=== PATIENT | female | born 1955 | race Caucasian/White ===

== ENCOUNTER 2016-12-20 17:18 | Inpatient (IN) | payer BC ==
[~2016-12-20 17:18] MED LIST: ADVI200C9 PO; LEVO.075 PO; LORT7.5T3 PO; OMEP20CA5 PO; PROT40TA PO
[2016-12-20 17:23] VITALS: BP 219/102; PULSE 118; RESP 18; TEMP 98.6; O2SAT 97
--- NOTE | 2016-12-20 17:26 | PD ---
HPI Chief Complaint: Neuro Symptoms/ Deficits Time Seen by Provider: 17:22 Travel History International Travel<30 days: No Contact w/Intl Traveler<30days: No Traveled to known affect area: No History of Present Illness HPI APPARENTLY PER PATIENT BECAME UNRESPONSIVE WHILE ON TOILET, PER [place] SOME EXTREMITY STIFFNESS WAS NOTED. DENIES ANY HISTORY OF SEIZURES.....BY THE TIME EMS ARRIVED THEY FOUND PATIENT TO HAVE RIGHT SIDED FACIAL DROOP AND RIGHT SIDED WEAKNESS, WELL HYPERTENSIVE, PATIENT ARRIVED STROKE ALERT. ONSET OF SYMPTOMS ALL TOGETHER ABOUT AN HOUR AGO. PFSH Past Medical History Asthma: Yes Heart Rhythm Problems: No Cardiac Catheterization: No Cardiovascular Problems: No High Cholesterol: No Congestive Heart Failure: No Diabetes: No Diminished Hearing: No Hypertension: No Myocardial Infarction: No Past Surgical History Section: Yes (1976) Cholecystectomy: Yes (1990) Coronary Artery Bypass Graft: No Gynecologic Surgery: Yes (D&C ) Hysterectomy: Yes (1989) Oral Surgery: Yes (wisdom teeth ) Social History Alcohol Use: Yes (BEER 4 CANS/DAY; "SOMETIMES MORE, SOMETIMES LESS"; LAST USED TODAY) Tobacco Use: Yes (03/16 PPD) Substance Use: No Allergies-Medications (Allergen,Severity, Reaction): Coded Allergies: codeine (Unverified Allergy, Severe, 12/20/16) diatrizoate meglumine (Unverified Allergy, Severe, 12/20/16) gadobenic acid (Unverified Allergy, Severe, 12/20/16) gadodiamide (Unverified Allergy, Severe, 12/20/16) gadoteridol (Unverified Allergy, Severe, 12/20/16) iodixanol (Unverified Allergy, Severe, 12/20/16) iohexol (Unverified Allergy, Severe, 12/20/16) Reported Meds & Prescriptions Reported Meds & Active Scripts Active Reported Levothyroxine (Levothyroxine Sodium) 75 Mcg Tab 75 Mcg PO DAILY Review of Systems ROS Limitations: Altered Mental Status Except as stated in HPI: all other systems reviewed are Neg Physical Exam Exam Limitations: Altered Mental Status Narrative GENERAL: SKIN: Warm and dry. HEAD: Atraumatic. Normocephalic. EYES: Pupils equal and round. No scleral icterus. No injection or drainage. ENT: No nasal bleeding or discharge. Mucous membranes pink and moist. NECK: Trachea midline. No JVD. CARDIOVASCULAR: Regular rate and rhythm. RESPIRATORY: No accessory muscle use. Clear to auscultation. Breath sounds equal bilaterally. GASTROINTESTINAL: Abdomen soft, non-tender, nondistended. MUSCULOSKELETAL: Extremities without clubbing, cyanosis, or edema. No obvious deformities. NEUROLOGICAL: Awake and alert. No obvious cranial nerve deficits. Motor grossly within normal limits. Five out of 5 muscle strength in the arms and legs. Normal speech. PSYCHIATRIC: Appropriate mood and affect; insight and judgment normal. Data Data Last Documented VS Orders Orders Electrocardiogram (12/20/16:) Complete Blood Count With Diff (12/20/16:) Comprehensive Metabolic Panel (12/20/16) Ckmb (Isoenzyme) Profile (12/20/16) Troponin I (12/20/16:) B-Type Natriuretic Peptide (12/20/16:) Lipase (12/20/16:22) Chest, Single Ap (12/20/16:) Ct Brain W/O Iv Contrast(Rout) (12/20/16 17:22) Iv Access Insert/Monitor (12/20/16 17:) Ecg Monitoring (12/20/16:) Oximetry (12/20/16:) Alcohol (Ethanol) (12/20/16:22) Salicylates (Aspirin) (12/20/16 17:22) Tylenol (Acetaminophen) (12/20/16 17:22) Hydralazine Inj (Apresoline Inj) (12/20/16 18:45) Admit Order (Ed Use Only) (12/20/16 19:15) Labs Laboratory Tests Test 12/20/16 17:20 White Blood Count 7.5 TH/MM3 Red Blood Count 3.36 MIL/MM3 Hemoglobin 11.2 GM/DL Hematocrit 32.8 % Mean Corpuscular Volume 97.5 FL Mean Corpuscular Hemoglobin 33.3 PG Mean Corpuscular Hemoglobin Concent 34.1 % Red Cell Distribution Width 12.8 % Platelet Count 433 TH/MM3 Mean Platelet Volume 7.2 FL Neutrophils (%) (Auto) 59.2 % Lymphocytes (%) (Auto) 24.3 % Monocytes (%) (Auto) 14.4 % Eosinophils (%) (Auto) 1.2 % Basophils (%) (Auto) 0.9 % Neutrophils # (Auto) 4.4 TH/MM3 Lymphocytes # (Auto) 1.8 TH/MM3 Monocytes # (Auto) 1.1 TH/MM3 Eosinophils # (Auto) 0.1 TH/MM3 Basophils # (Auto) 0.1 TH/MM3 CBC Comment DIFF FINAL Differential Comment Blood Urea Nitrogen 25 MG/DL Creatinine 1.62 MG/DL Random Glucose 156 MG/DL Total Protein 7.1 GM/DL Albumin 3.4 GM/DL Calcium Level 8.0 MG/DL Alkaline Phosphatase 94 U/L Aspartate Amino Transf (AST/SGOT) 24 U/L Alanine Aminotransferase (ALT/SGPT) 16 U/L Total Bilirubin 0.1 MG/DL Sodium Level 127 MEQ/L Potassium Level 3.8 MEQ/L Chloride Level 97 MEQ/L Carbon Dioxide Level 13.4 MEQ/L Anion Gap 17 MEQ/L Estimat Glomerular Filtration Rate 32 ML/MIN Serum Osmolality 282 MOSM/KG Total Creatine Kinase 61 U/L Troponin I LESS THAN 0.02 NG/ML B-Type Natriuretic Peptide 84 PG/ML Lipase 210 U/L Salicylates Level 2.3 MG/DL Acetaminophen Level LESS THAN 2.0 MCG/ML Ethyl Alcohol Level LESS THAN 3 MG/DL MDM Medical Decision Making Medical Screen Exam Complete: Yes Emergency Medical Condition: Yes Medical Record Reviewed: Yes Interpretation(s) NSR, 94, J POINT ELEV, NO STEMI PATTERN Differential Diagnosis SEIZURE V HEMORRHAGIC STROKE V ELECTROLYT E ABNL Narrative Course OF NOTE PATIENT'S RAPID YET GRADUAL IMPROVEMENT TOOK PATIENT OUT OF TPA CONSIDERATION WELL HER SEVERE HTN....DURING OBSERVATION PERIOD, PATIENT APPEARED TO GRADUALLY IMPROVE HER COGNITIVE FUNCTION WELL HER MOTOR ACTIVITIES TO ALL EXTREMITIES AND EVENTUALLY WITHIN 1 HR OBS TIME IN ED PER PATIENT WAS BACK TO HER NORMAL BASELINE... PATIENT WILL BE ADMITTED FOR FURTHER BP CONTROL, NEURO EVAL AND SODIUM REPLACEMENT. ALL OF THOSE MENTIONED ABNORMALITIES MAY HAVE CAUSED PATIENT'S SEIZURE ACTIVITY, RATHER THAN EPILEPSY. Critical Care Narrative CRITICAL CARE NOTE: With evaluation of the patient, labs, EKG, receipt of radiologic studies, administration of medications, reevaluation the patient and discussion of the patient with the admitting physicians, the total critical care time was [60] minutes. Time to perform other separately billable procedures was not included in the critical care time. Diagnosis Primary Impression: NEW ONSET SEIZURE Additional Impressions: Hypertensive encephalopathy Hyponatremia Admitting Information Admitting Physician Requests: Admit Scripts Metoprolol Tartrate (Lopressor) 50 Mg Tab 25 MG PO BID for hypertension, #30 TAB 0 Refills Prov: Jorge Clifford MD 12/23/16 Chlordiazepoxide HCl (Chlordiazepoxide HCl) 10 Mg Capsule 1 TAB PO QID for withdrawl symtoms, #20 TAB Prov: Jorge Clifford MD 12/23/16 Cyanocobalamin (Vitamin B-12) 1,000 Mcg Tab 1000 MCG PO DAILY for Nutritional Supplement, #1 BOTTLE 0 Refills Start this medication next day after the last dose of cyanocobalamin IM injection Prov: Jorge Clifford MD 12/23/16 Thiamine HCl (Gnp Vitamin B-1) 100 Mg Tab 100 MG PO DAILY for deficiency for 30 Days, #30 TAB Prov: Jorge Clifford MD 12/23/16 Folic Acid (Folic Acid) 1 Mg Tablet 1 MG PO DAILY for deficiency for 30 Days, #30 TAB Prov: Jorge Clifford MD 12/23/16 Cyanocobalamin Inj (Cyanocobalamin Inj) 1,000 Mcg/Ml Inj 1000 MCG IM Q30D for vitamin deficiency for 7 Days, #7 ML Prov: Jorge Clifford MD 12/23/16 Amlodipine (Norvasc) 10 Mg Tab 10 MG PO DAILY for hypertension for 30 Days, #30 TAB Prov: Jorge Clifford MD 12/23/16 Favio Leggett MD Dec 20, 2016 17:26
[2016-12-20 17:43] VITALS: BP 229/100; PULSE 96; RESP 18; O2SAT 99
[2016-12-20] MEDS ORDERED: LEVO75TA3 PO (17:43)
[2016-12-20] MEDS ORDERED: AMLO5TAB2 PO (17:43)
--- NOTE | 2016-12-20 17:43 | RADRPT ---
EXAM DATE/TIME: 12/20/2016 17:37 [facility] COMPARISON: No previous studies available for comparison. INDICATIONS : Weakness and lightheaded, concern for stroke. MEDICAL HISTORY : None. SURGICAL HISTORY : None. ENCOUNTER: Initial ACUITY: 1 day PAIN SCORE: 0/10 LOCATION: Bilateral chest FINDINGS: A single view of the chest demonstrates the lungs to be symmetrically aerated without evidence of mas s, infiltrate or effusion. The cardiomediastinal contours are unremarkable. Osseous structures are intact. CONCLUSION: No acute disease. John Stallings MD on December 20, 2016 at 17:42 Board Certified Radiologist. This report was verified electronically.
--- NOTE | 2016-12-20 17:43 | RADRPT ---
EXAM DATE/TIME: 12/20/2016 17:24 [facility] COMPARISON: No previous studies available for comparison. INDICATIONS : Right sided facial droop; unresponsive. RADIATION DOSE: 56.35 CTDIvol (mGy) MEDICAL HISTORY : ETOH daily. SURGICAL HISTORY : Hysterectomy. Cholecystectomy. ENCOUNTER: Initial ACUITY: 1 day PAIN SCALE: Non-responsive LOCATION: cranial TECHNIQUE: Multiple contiguous axial images were obtained of the head. Using automated exposure control and adj ustment of the mA and/or kV according to patient size, radiation dose was kept as low as reasonably a chievable to obtain optimal diagnostic quality images. DICOM format image data is available electro nically for review and comparison. FINDINGS: There is mild volume loss and patchy periventricular white matter disease most likely on the basis of microvascular ischemic disease. There is a lacunar infarct in the left external capsule/putamen dana on. No definite evidence of acute infarct, hemorrhage or mass. No fractures. CONCLUSION: No acute disease. John Stallings MD on December 20, 2016 at 17:41 Board Certified Radiologist. This report was verified electronically.
[2016-12-20 17:44] VITALS: O2SAT 99
[2016-12-20 17:50] LABS: AUTOMATED NEUTROPHIL # 4.4 TH/MM3 (1.8-7.7); BASOPHIL # 0.1 TH/MM3 (0-0.2); BASOPHIL % 0.9 % (0.0-2.0); EOSINOPHIL # 0.1 TH/MM3 (0-0.4); EOSINOPHIL % 1.2 % (0.0-4.0); HEMATOCRIT 32.8 % (35.0-46.0); HEMO FLAGS DIFF FINAL; LYMPH % 24.3 % (9.0-44.0); LYMPHOCYTE # 1.8 TH/MM3 (1.0-4.8); MEAN CELL VOLUME 97.5 FL (80.0-100.0); MEAN CORPUSCULAR HEMOGLOBIN 33.3 PG (27.0-34.0); MEAN CORPUSCULAR HGB CONC 34.1 % (32.0-36.0); MONO % 14.4 % (0.0-8.0); NEUT % 59.2 % (16.0-70.0); PLATELET COUNT 433 TH/MM3 (150-450); RED BLOOD COUNT 3.36 MIL/MM3 (4.00-5.30); RED CELL DISTRIBUTION WIDTH 12.8 % (11.6-17.2); WHITE BLOOD COUNT 7.5 TH/MM3 (4.0-11.0)
[2016-12-20 18:08] LABS: ALT (GPT) 16 U/L (10-53)
[2016-12-20 18:23] LABS: ALKALINE PHOSPHATASE 94 U/L (45-117); ANION GAP 17 MEQ/L (5-15); AST (GOT) 24 U/L (15-37); BICARBONATE 13.4 MEQ/L (21.0-32.0); BLOOD UREA NITROGEN 25 MG/DL (7-18); CHLORIDE 97 MEQ/L (98-107); GLOMERULAR FILTRATION RATE 32 ML/MIN (>89); POTASSIUM 3.8 MEQ/L (3.5-5.1); SODIUM (NA) 127 MEQ/L (136-145); TOTAL BILIRUBIN ADULT 0.1 MG/DL (0.2-1.0)
[2016-12-20 18:24] LABS: ACETAMINOPHEN LESS THAN 2.0 MCG/ML (10.0-30.0); ALCOHOL LESS THAN 3 MG/DL (0-5); CREATINE KINASE 61 U/L (26-192)
[2016-12-20 18:34] VITALS: BP 212/88; PULSE 95; RESP 18; O2SAT 100
[2016-12-20] MEDS ORDERED: hydrALAZINE HCL 20 MG/ML VIAL IV PUSH ONE (18:45)
[2016-12-20 19:37] VITALS: BP 191/78; PULSE 100; RESP 16; O2SAT 100
[2016-12-20] MEDS ORDERED: ENALAPRILAT 2.5 MG/2 ML VIAL IV PUSH PRN (20:45)
[2016-12-20] MEDS: SODIUM CHLOR 0.45% 1000 ML INJ 1,000 ML IV SCH ×2 (22:08→23:25)
[2016-12-20 23:00] VITALS: BP 186/79; PULSE 91; PULSE 95; RESP 18; TEMP 98.2; O2SAT 100
[2016-12-21] VITALS (25 sets, daily range): BP systolic 152–169; BP diastolic 64–81; PULSE 70–96; RESP 16–18; TEMP 97.5–98.6; O2SAT 97–100
[2016-12-21] MEDS ORDERED: ACETAMINOPHEN 325 MG TAB PO PRN (00:15)
[2016-12-21] MEDS: LEVOTHYROXINE SODIUM 75 MCG TAB PO SCH (06:02)
[2016-12-21 06:54] LABS: HEMATOCRIT 32.2 % (35.0-46.0); MEAN CELL VOLUME 95.2 FL (80.0-100.0); MEAN CORPUSCULAR HEMOGLOBIN 33.1 PG (27.0-34.0); MEAN CORPUSCULAR HGB CONC 34.7 % (32.0-36.0); PLATELET COUNT 444 TH/MM3 (150-450); RED BLOOD COUNT 3.38 MIL/MM3 (4.00-5.30); RED CELL DISTRIBUTION WIDTH 12.9 % (11.6-17.2); REVIEW FLAG FINAL; WHITE BLOOD COUNT 5.1 TH/MM3 (4.0-11.0)
[2016-12-21 07:32] LABS: BICARBONATE 21.1 MEQ/L (21.0-32.0); HDL CHOLESTEROL 138.8 MG/DL (40.0-60.0); POTASSIUM 4.1 MEQ/L (3.5-5.1)
[2016-12-21] MEDS: ASPIRIN 325 MG TAB PO SCH (08:38)
--- NOTE | 2016-12-21 09:41 | HHI.HP ---
HPI Service [facility] Primary Care Physician Unknown Admission Diagnosis HYPERTENSIVE ENCEPHALOPATHY/HYPONATREMIA/ Diagnoses: Chief Complaint: Seizure Travel History International Travel<30 Days: No Contact w/Intl Traveler <30 Da: No Traveled to Known Affected Are: No History of Present Illness Mrs. Burden is a 61-year-old white female with significant past medical history of hypertension, hypothyroidism. Patient presented to the emergency room after she was found unresponsive. According to the patient, she had not been feeling well and asked her to take her to the bathroom. This is the last thing she remembers. Indicates that she was found unresponsive, was noted drooling and her extremities were stiff. She denies any prior episodes of seizures. Indicates she's had episodes of hypoglycemia in the past but has never had any episodes of unresponsiveness. She indicates that she does drink approximately 5 beers a day, has never had any type of seizures related to withdrawal symptoms. Patient was evaluated in the emergency room, laboratory workup was completed. BMP remarkable for acute kidney injury, creatinine 1.62. She was noted hyponatremic, sodium was 127. CBC unremarkable. CT of the head was negative. Patient was noted with elevated blood pressure 219/102. At this time , patient is resting comfortably, has no complaints. No headaches, no recent fever, no chills. No chest pain, shortness of breath. Patient is admitted for further evaluation. Review of Systems Constitutional: DENIES: Diaphoretic episodes, Fatigue, Fever, Weight gain, Weight loss, Chills, Dizziness, Change in appetite, Night Sweats Endocrine: DENIES: Abnorml menstrual pattern, Heat/cold intolerance, Polydipsia , Polyuria, Polyphagia Eyes: DENIES: Blurred vision, Diplopia, Eye inflammation, Eye pain, Vision loss , Photosensitivity, Double Vision Ears, nose, mouth, throat: DENIES: Tinnitus, Hearing loss, Vertigo, Nasal discharge, Oral lesions, Throat pain, Hoarseness, Ear Pain, Running Nose, Epistaxis, Sinus Pain, Toothache, Odynophagia Respiratory: DENIES: Apneas, Cough, Snoring, Wheezing, Hemoptysis, Sputum production, Shortness of breath Cardiovascular: DENIES: Chest pain, Palpitations, Syncope, Dyspnea on Exertion , PND, Lower Extremity Edema, Orthopnea, Claudication Gastrointestinal: COMPLAINS OF: Nausea, DENIES: Abdominal pain, Black stools, Bloody stools, Constipation, Diarrhea, Vomiting, Difficulty Swallowing, Anorexia Genitourinary: DENIES: Abnormal vaginal bleeding, Dysmenorrhea, Dyspareunia, Sexual dysfunction, Urinary frequency, Urinary incontinence, Urgency, Hematuria , Dysuria, Nocturia, Vaginal discharge Musculoskeletal: DENIES: Joint pain, Muscle aches, Stiffness, Joint Swelling, Back pain, Neck pain Integumentary: DENIES: Abnormal pigmentation, Pruritus, Rash, Nail changes, Breast masses, Breast skin changes, Nipple discharge Hematologic/lymphatic: DENIES: Bruising, Lymphadenopathy Immunologic/allergic: DENIES: Eczema, Urticaria Neurologic: COMPLAINS OF: Seizures, DENIES: Abnormal gait, Headache, Localized weakness, Paresthesias, Speech Problems, Tremor, Poor Balance Psychiatric: DENIES: Anxiety, Confusion, Mood changes, Depression, Hallucinations, Agitation, Suicidal Ideation, Homicidal Ideation, Delusions Past Family Social History Past Medical History Hypertension Hypothyroidism Daily alcohol use Hyponatremia in the past Perforated viscus in 2007 Quit smoking 12 days ago Past Surgical History Expiratory lap and repair of duodenal ulcer 2007 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, noncancerous Cholecystectomy D&C Hysterectomy [place] teeth removal Reported Medications Reported Meds & Active Scripts Active Reported Amlodipine (Amlodipine Besylate) 5 Mg Tab 5 Mg PO DAILY Levothyroxine (Levothyroxine Sodium) 75 Mcg Tab 75 Mcg PO DAILY Allergies: Coded Allergies: codeine (Unverified Allergy, Severe, 12/20/16) diatrizoate meglumine (Unverified Allergy, Severe, 12/20/16) gadobenic acid (Unverified Allergy, Severe, 12/20/16) gadodiamide (Unverified Allergy, Severe, 12/20/16) gadoteridol (Unverified Allergy, Severe, 12/20/16) iodixanol (Unverified Allergy, Severe, 12/20/16) iohexol (Unverified Allergy, Severe, 12/20/16) Active Ordered Medications Inpatient Medications Acetaminophen (Tylenol) 650 mg QID PRN PO PAIN Last administered on 12/21/16 00:50; Start 12/21/16 at 00:15 Amlodipine Besylate (Norvasc) 10 mg DAILY PO Last administered on 12/21/16 08: 36; Start 12/21/16 at 09:00 Aspirin (Aspirin) 325 mg DAILY PO Last administered on 12/21/16 08:38; Start 12/21/16 at 09:00 Enalaprilat (Vasotec Inj) 2.5 mg Q6H PRN IV PUSH SBP >180; Start 12/20/16 at 20 :45 Hydralazine HCl (Apresoline Inj) 10 mg ONCE ONCE IV PUSH Last administered on 12/20/16 18:42; Start 12/20/16 at 18:45; Stop 12/20/16 at 18:46; Status DC Levothyroxine Sodium (Synthroid) 75 mcg DAILY@0600 PO Last administered on 12/21 06:02; Start 12/21/16 at 06:00 Sodium Chloride 1,000 ml @ 84 mls/hr [id number] IV Last administered on 23:25; Start 12/20/16 at 21:00 Family History Both parents , mother from stroke. Father from cancer, not sure what type Social History Patient is , has 1 grown daughter. Quit smoking 12 days ago, smoked half pack a day for many years, drinks 5-6 cans of beer a day. No illegal drug use. Physical Exam Vital Signs Vital Signs Date Time Temp Pulse Resp B/P (MAP) Pulse Ox O2 Delivery O2 Flow Rate FiO2 12/21/16 06:20 79 12/21/16 05:00 74 12/21/16 04:00 86 12/21/16 03:00 97.6 86 18 156/68 (97) 97 12/21/16 03:00 79 12/21/16 02:00 80 12/21/16 01:00 86 12/21/16 00:00 84 12/20/16 23:00 98.2 95 18 186/79 (114) 100 12/20/16 23:00 91 12/20/16 22:57 12/20/16 19:37 100 16 191/78 (115) 100 Room Air 12/20/16 18:34 95 18 212/88 (129) 100 Room Air 12/20/16 17:44 99 Room Air 12/20/16 17:43 96 18 229/100 (143) 99 Room Air 12/20/16 17:23 98.6 118 18 219/102 (141) 97 Room Air 12/20/16 17:20 18 Room Air Physical Exam GENERAL: This is a well-nourished, well-developed patient, in no apparent distress. SKIN: No rashes, ecchymoses or lesions. Cool and dry. HEAD: Atraumatic. Normocephalic. No temporal or scalp tenderness. EYES: Pupils equal round and reactive. Extraocular motions intact. No scleral icterus. No injection or drainage. ENT: Nose without bleeding, purulent drainage or septal hematoma. Throat without erythema, tonsillar hypertrophy or exudate. Uvula midline. Airway patent. NECK: Trachea midline. No JVD or lymphadenopathy. Supple, nontender, no meningeal signs. CARDIOVASCULAR: Regular rate and rhythm without murmurs, gallops, or rubs. RESPIRATORY: Clear to auscultation. Breath sounds equal bilaterally. No wheezes , rales, or rhonchi. GASTROINTESTINAL: Abdomen soft, non-tender, nondistended. No hepato-splenomegaly , or palpable masses. No guarding. MUSCULOSKELETAL: Extremities without clubbing, cyanosis, or edema. No joint tenderness, effusion, or edema noted. No calf tenderness. Negative Homans sign bilaterally. NEUROLOGICAL: Awake and alert. Cranial nerves II through XII intact. Motor and sensory grossly within normal limits. Five out of 5 muscle strength in all muscle groups. Normal speech. Laboratory Laboratory Tests Test 12/20/16 17:20 12/21/16 06:30 White Blood Count 7.5 5.1 Red Blood Count 3.36 3.38 Hemoglobin 11.2 11.2 Hematocrit 32.8 32.2 Mean Corpuscular Volume 97.5 95.2 Mean Corpuscular Hemoglobin 33.3 33.1 Mean Corpuscular Hemoglobin Concent 34.1 34.7 Red Cell Distribution Width 12.8 12.9 Platelet Count 433 444 Mean Platelet Volume 7.2 6.8 Neutrophils (%) (Auto) 59.2 Lymphocytes (%) (Auto) 24.3 Monocytes (%) (Auto) 14.4 Eosinophils (%) (Auto) 1.2 Basophils (%) (Auto) 0.9 Neutrophils # (Auto) 4.4 Lymphocytes # (Auto) 1.8 Monocytes # (Auto) 1.1 Eosinophils # (Auto) 0.1 Basophils # (Auto) 0.1 CBC Comment DIFF FINAL Differential Comment Blood Urea Nitrogen 25 23 Creatinine 1.62 1.47 Random Glucose 156 80 Total Protein 7.1 Albumin 3.4 Calcium Level 8.0 8.8 Alkaline Phosphatase 94 Aspartate Amino Transf (AST/SGOT) 24 Alanine Aminotransferase (ALT/SGPT) 16 Total Bilirubin 0.1 Sodium Level 127 128 Potassium Level 3.8 4.1 Chloride Level 97 98 Carbon Dioxide Level 13.4 21.1 Anion Gap 17 9 Estimat Glomerular Filtration Rate 32 36 Total Creatine Kinase 61 Troponin I LESS THAN 0.02 B-Type Natriuretic Peptide 84 Lipase 210 Salicylates Level 2.3 Acetaminophen Level LESS THAN 2.0 Ethyl Alcohol Level LESS THAN 3 Triglycerides Level 70 Cholesterol Level 240 LDL Cholesterol 87 HDL Cholesterol 138.8 Cholesterol/HDL Ratio 1.72 Random Cortisol 21.5 Result Diagram: 12/21/1630 12/21/16629 Imaging Last Impressions Head CT 12/20/161721 Signed Impressions: Service Date/Time: Tuesday, December 20, 2016 17:24 - CONCLUSION: No acute disease. John Stallings MD Chest X-Ray 12/20/161721 Signed Impressions: Service Date/Time: Tuesday, December 20, 2016 17:37 - CONCLUSION: No acute disease. John Stallings MD [place] VTE Risk Assessment Caprini VTE Risk Assessment: Mod/High Risk (score >= 2) Caprini Risk Assessment Model Point Value = 1 Point Value = 2 Point Value = 3 Point Value = 5 Age 41-60 Minor surgery BMI > 25 kg/m2 Swollen legs Varicose veins or History of unexplained or recurrent spontaneous Oral contraceptives or hormone replacement Sepsis (< 1 month) Serious lung disease, including pneumonia (< 1 month) Abnormal pulmonary function Acute myocardial infarction Congestive heart failure (< 1 month) History of inflammatory bowel disease Medical patient at bed rest Age 61-74 Arthroscopic surgery Major open surgery (> 45 min) Laparoscopic surgery (> 45 min) Malignancy Confined to bed (> 72 hours) Immobilizing plaster cast Central venous access Age >= 75 History of VTE Family history of VTE Factor V Leiden Prothrombin [id number] Lupus anticoagulant Anticardiolipin antibodies Elevated serum homocysteine Heparin-induced thrombocytopenia Other congenital or acquired thrombophilia Stroke (< 1 month) Elective arthroplasty Hip, pelvis, or leg fracture Acute spinal cord injury (< 1 month) Prophylaxis Regimen Total Risk Factor Score Risk Level Prophylaxis Regimen 0-1 Low Early ambulation 2 Moderate Order ONE of the following: *Sequential Compression Device (SCD) *Heparin 5000 units SQ BID 3-4 Higher Order ONE of the following medications: *Heparin 5000 units SQ TID *Enoxaparin/Lovenox 40 mg SQ daily (WT < 150 kg, CrCl > 30 mL/min) *Enoxaparin/Lovenox 30 mg SQ daily (WT < 150 kg, CrCl > 10-29 mL/min) *Enoxaparin/Lovenox 30 mg SQ BID (WT < 150 kg, CrCl > 30 mL/min) AND/OR *Sequential Compression Device (SCD) 5 or more Highest Order ONE of the following medications: *Heparin 5000 units SQ TID (Preferred with Epidurals) *Enoxaparin/Lovenox 40 mg SQ daily (WT < 150 kg, CrCl > 30 mL/min) *Enoxaparin/Lovenox 30 mg SQ daily (WT < 150 kg, CrCl > 10-29 mL/min) *Enoxaparin/Lovenox 30 mg SQ BID (WT < 150 kg, CrCl > 30 mL/min) AND *Sequential Compression Device (SCD) Assessment and Plan Problem List: (1) Hypertensive encephalopathy ICD Codes: I67.4 - Hypertensive encephalopathy Status: Acute (2) Hyponatremia ICD Codes: E87.1 - Hypo-osmolality and hyponatremia Status: Acute (3) Acute kidney injury ICD Codes: N17.9 - Acute kidney failure, unspecified Status: Acute (4) possible seizure Status: Acute (5) Alcohol use ICD Codes: Z78.9 - Other specified health status Status: Acute (6) Hypothyroid ICD Codes: E03.9 - Hypothyroidism, unspecified Status: Chronic Assessment and Plan Admit to Dr. Doss 61-year-old female admitted after she was found unresponsive, drooling, possible seizure. Possible seizure, was found hyponatremic, endorses daily alcohol use. -Seizure precautions -EEG has been ordered -Consult neurology for recommendations -Continue Ativan as needed for seizures Daily alcohol use -Patient has been instructed to abstain from alcohol use or to at least limited amount -We will add Librium 10 mg by mouth 3 times a day as needed for withdrawal symptoms -We will add folate acid 1 mg by mouth daily and thiamine 100 mg by mouth daily Hyponatremia -Continue with IV fluids -Cortisol level has been completed, results are noted Acute kidney injury -Avoid nephrotoxic agents -Continue IV fluids -Follow BMP next Hypertensive urgency, blood pressure has stabilized. -Blood pressure is improving, continue with Norvasc 5 mg by mouth daily -Continue with Vasotec 2.5 mg IV push every 6 when necessary for elevated blood pressure systolic greater than 180 Hypothyroid -Continue with home meds SCDs for DVT prophylaxis Pepcid 20 mg by mouth twice a day for GI prophylaxis Home medications reviewed, initiated as indicated Plan of care has been discussed with the patient, attending and registered nurse. Further management of the patient will be dependent on the hospital course This patient was seen by myself and Dr. Doss, this H&P is written on his behalf Physician Certification 2 Midnight Certification Type: Admission for Inpatient Services Order for Inpatient Services The services are ordered in accordance with Medicare regulations or non- Medicare payer requirements, as applicable. In the case of services not specified as inpatient-only, they are appropriately provided as inpatient services in accordance with the 2-midnight benchmark. Estimated LOS (days): 2 2 days is the estimated time the patient will need to remain in the hospital, assuming treatment plan goals are met and no additional complications. Post-Hospital Plan: Not yet determined Problem Qualifiers (1) Hypothyroid: Qualified Codes: E03.9 - Hypothyroidism, unspecified Silvia Jimenez Dec 21, 2016 09:40
[2016-12-21] MEDS ORDERED: LORazepam 2 MG/ML VIAL IV PUSH PRN (10:15)
--- NOTE | 2016-12-21 10:34 | MB ---
cc: SILVESTRE SCOTT M.D. DATE OF CONSULTATION 12/21/2016 REASON FOR CONSULTATION New-onset seizure. HISTORY OF PRESENT ILLNESS Ms. Burden is a 61-year-old female who has a history of hyponatremia and hyperglycemia who had a grand mal seizure yesterday. She has no prior history of seizures. Yesterday she states he was watching a football game with her , suddenly felt some nausea and was going to walk into the restroom and her found her unconscious, generalized tonic-clonic activity with foaming at the mouth after which she was postictal, very confused and somnolent. She feels basically back to normal at the present time. PAST MEDICAL HISTORY 1. History of hyponatremia of unknown etiology. 2. History of hyperglycemia but states she has not been diagnosed with diabetes. 3. History of hypertension. 4. History of hypothyroidism. CURRENT MEDICATIONS 1. Amlodipine 10 mg daily. 2. Librium 10 mg t.i.d. as needed. 3. Aspirin 325 mg daily. 4. Synthroid 75 mcg daily. 5. Tylenol as needed. SOCIAL HISTORY She drinks five beers daily. She quit smoking 10 days ago. NEUROLOGIC EXAMINATION VITAL SIGNS: Blood pressure is 158/81, pulse 89, respiratory rate 16, temperature 97.9 degrees. HIGHER CORTICAL FUNCTIONS: Normal. CRANIAL NERVES: Cranial nerves II-XII are normal in detail. MOTOR EXAM: 5/5 strength of all groups. There is no drift. Fine motor skills normal. REFLEXES: Symmetric. IMAGING STUDIES CT of the brain shows chronic ischemic demyelinization. No acute change present. There is old lacunar stroke identified. The left external capsule putamen; no hemorrhage is seen. There is mild atrophy. LABORATORY DATA White count 5100, hemoglobin 11.2, hematocrit 32.2%, platelet count 444,000. Sodium is 128, potassium 4.1 chloride 98, pCO2 21.1, the BUN is 23, creatinine 1.47, GFR is 36, glucose is 80, cholesterol 240, LDL 87, HDL 138. Tox screen is negative. IMPRESSION New-onset seizure, possibly related to alcohol use, possibly related hyponatremia but her serum sodium was only mildly depressed. Apparently she has run a low sodium for quite some time. RECOMMENDATIONS 1. EEG. 2. MRI of the brain. 3. I would recommend that she abstain from alcohol. 4. She should not drive for at least six months of being seizure-free. 5. Would not recommend anticonvulsant therapy unless the EEG were to show epileptiform discharges. MD DANGELO Durand/THELMA /10:01 AM /10:22 AM
[2016-12-21] MEDS: THIAMINE HCL 100 MG TAB PO SCH (11:30)
[2016-12-21] MEDS: FOLIC ACID 1 MG TAB PO SCH (11:30)
[2016-12-21] MEDS: SODIUM CHLOR 0.45% 1000 ML INJ 1,000 ML IV SCH (11:30)
--- NOTE | 2016-12-21 12:32 | EKG ---
Date Performed: 12/20/2016 Time Performed: 17:46:17 PTAGE: 61 years EKG: Sinus rhythm NORMAL ECG Compared to prior tracing no significant change PREVIOUS TRACING : 10/14/2006 17.58 DOCTOR: Asim Rodgers Interpretating Date/Time 12/21/2016 12:27:53
[2016-12-21] MEDS ORDERED: chlordiazePOXIDE 25 MG CAP PO PRN (13:00)
--- NOTE | 2016-12-21 15:58 | RADRPT ---
EXAM DATE/TIME: 12/21/2016 15:30 [facility] COMPARISON: CT BRAIN W/O CONTRAST, December 20, 2016, 17:24. INDICATIONS : Seizures. MEDICAL HISTORY : Thryoid, Seizures. SURGICAL HISTORY : Cholecystectomy. Hysterectomy. section. ENCOUNTER: Initial ACUITY: 1 day PAIN SCORE: 3/10 LOCATION: Bilateral cranial TECHNIQUE: Multiplanar, multisequence MRI of the brain was performed without contrast. FINDINGS: CEREBRUM: Mild cerebral atrophy. The ventricles are normal for age. No evidence of midline shift, mass lesion, hemorrhage or acute infarction. No extraaxial fluid collections are seen. The pituitary gland and suprasellar cistern are normal in configuration. WHITE MATTER: Scattered foci of bright T2 significant signal abnormalities are seen in the white matter. POSTERIOR FOSSA: The cerebellum and brainstem are intact. The 4th ventricle is midline. The cerebellopontine angle is unremarkable. The cerebellar tonsils are normal in position. DIFFUSION IMAGING: No focal areas of restricted diffusion are seen. No evidence of acute infarction. EXTRACRANIAL: The visualized portions of the orbits and paranasal sinuses are unremarkable. CONCLUSION: 1. Cerebral atrophy and chronic ischemic small vessel vasculopathy. 2. No acute infarction. Goyo Juarez MD on December 21, 2016 at 15:52 Board Certified Radiologist. This report was verified electronically.
[2016-12-21] MEDS: FAMOTIDINE 20 MG TAB PO SCH (20:46)
--- NOTE | 2016-12-21 22:53 | MG ---
cc: DEEPAK BLEDSOE M.D. Sex: F REQUESTING PHYSICIAN: Dr. Doss INTRODUCTION: An EEG was obtained on this 61 year-old patient being evaluated for blurriness of vision, body stiffness, and unresponsiveness. MEDICATIONS: Norvasc Aspirin Synthroid Tylenol DESCRIPTION: This EEG shows a lot of low amplitude beta rhythms. There is some low to mid amplitude alpha activity posteriorly. There is eye movement artifact. The background is reactive. There are intermixed theta rhythms. Intermittently there is more of the theta rhythms on the left than right. Photic stimulation was unremarkable. Hyperventilation not performed. INTERPRETATION This EEG shows possible left hemisphere focal slowing intermittently but no distinct epileptiform features present. Clinical and imaging correlation. Deepak Bledsoe MD [facility] /10:01 PM /10:45 PM
[2016-12-22] VITALS (23 sets, daily range): BP systolic 154–187; BP diastolic 58–78; PULSE 72–91; RESP 16–20; TEMP 97.6–98.6; O2SAT 97–100
[2016-12-22] MEDS: SODIUM CHLOR 0.45% 1000 ML INJ 1,000 ML IV SCH ×2 (01:16→13:26)
[2016-12-22] MEDS: LEVOTHYROXINE SODIUM 75 MCG TAB PO SCH (06:17)
[2016-12-22 08:30] LABS: HEMATOCRIT 33.6 % (35.0-46.0); MEAN CELL VOLUME 96.5 FL (80.0-100.0); MEAN CORPUSCULAR HGB CONC 34.2 % (32.0-36.0); PLATELET COUNT 451 TH/MM3 (150-450); RED BLOOD COUNT 3.48 MIL/MM3 (4.00-5.30); RED CELL DISTRIBUTION WIDTH 13.4 % (11.6-17.2); REVIEW FLAG FINAL; WHITE BLOOD COUNT 5.3 TH/MM3 (4.0-11.0)
[2016-12-22] MEDS: FAMOTIDINE 20 MG TAB PO SCH ×2 (08:36→21:17)
[2016-12-22] MEDS: FOLIC ACID 1 MG TAB PO SCH (08:36)
[2016-12-22] MEDS: THIAMINE HCL 100 MG TAB PO SCH (08:36)
[2016-12-22] MEDS: ASPIRIN 325 MG TAB PO SCH (08:39)
[2016-12-22] MEDS ORDERED: CYANOCOBALAMIN 1000 MCG/ML VIAL IM SCH (09:00)
[2016-12-22 09:06] LABS: BICARBONATE 21.2 MEQ/L (21.0-32.0); POTASSIUM 4.1 MEQ/L (3.5-5.1)
--- NOTE | 2016-12-22 17:43 | HHI.PR ---
Subjective Remarks Patient is feeling better No seizures On medical dizziness No chest shortness of breath No nausea vomiting or abdominal pain No diarrhea or constipation No genitourinary symptoms Review of system for 10 point system otherwise unremarkable Objective Objective Results - Vital Signs Date Time Temp Pulse Resp B/P (MAP) Pulse Ox O2 Delivery O2 Flow Rate FiO2 12/22/16 15:30 98.6 91 18 161/71 (101) 100 12/22/16 15:01 80 12/22/16 14:00 74 12/22/16 13:02 82 12/22/16 12:00 80 12/22/16 11:45 98.1 87 18 154/58 (90) 100 12/22/16 11:01 82 12/22/16 10:00 84 12/22/16 09:00 82 12/22/16 08:00 86 12/22/16 07:58 88 12/22/16 07:46 98.4 80 17 163/78 (106) 12/22/16 07:01 80 12/22/16 06:00 74 12/22/16 05:00 85 12/22/16 04:00 78 12/22/16 03:00 98.4 78 16 171/77 (108) 100 12/22/16 03:00 76 12/22/16 02:00 73 12/22/16 01:00 72 12/22/16 00:00 72 12/21/16 23:00 97.5 78 16 169/74 (105) 97 12/21/16 23:00 74 12/21/16 22:00 70 12/21/16 21:00 72 12/21/16 20:00 78 12/21/16 20:00 98.3 83 16 165/69 (101) 100 12/21/16 19:00 90 12/21/16 18:00 96 I/O 12/21/16 12/21/16 12/21/16 12/22/16 12/22/16 12/22/16 07:00 15:00 23:00 07:00 15:00 23:00 Intake Total 1146 ml 1129 ml 1293 ml 584 ml 960 ml Output Total 1150 ml 1450 ml 1100 ml 1100 ml Balance -4 ml -321 ml 193 ml 584 ml -140 ml Intake Oral 480 ml 480 ml 360 ml 960 ml IV Total 666 ml 649 ml 933 ml 584 ml Output Urine Total 1150 ml 1450 ml 1100 ml 1100 ml # Voids 4 # Bowel Movements 0 1 0 0 Result Diagram: 12/22/1672912/22/16729 Imaging Last Impressions Head CT 12/20/161721 Signed Impressions: Service Date/Time: Tuesday, December 20, 2016 17:24 - CONCLUSION: No acute disease. John Stallings MD Chest X-Ray 12/20/161721 Signed Impressions: Service Date/Time: Tuesday, December 20, 2016 17:37 - CONCLUSION: No acute disease. John Stallings MD Other Results Laboratory Tests Test 12/22/16 07:30 White Blood Count 5.3 Red Blood Count 3.48 Hemoglobin 11.5 Hematocrit 33.6 Mean Corpuscular Volume 96.5 Mean Corpuscular Hemoglobin 33.0 Mean Corpuscular Hemoglobin Concent 34.2 Red Cell Distribution Width 13.4 Platelet Count 451 Mean Platelet Volume 7.1 Blood Urea Nitrogen 16 Creatinine 1.46 Random Glucose 85 Calcium Level 9.2 Sodium Level 132 Potassium Level 4.1 Chloride Level 102 Carbon Dioxide Level 21.2 Anion Gap 9 Estimat Glomerular Filtration Rate 36 Physical Exam Physical Exam GENERAL: This is a well-nourished, well-developed patient, in no apparent distress. SKIN: No rashes, ecchymoses or lesions. Cool and dry. HEAD: Atraumatic. Normocephalic. No temporal or scalp tenderness. EYES: Pupils equal round and reactive. Extraocular motions intact. No scleral icterus. No injection or drainage. ENT: Airway patent. NECK: Trachea midline. No JVD or lymphadenopathy. Supple, nontender, no meningeal signs. CARDIOVASCULAR: Regular rate and rhythm without murmurs, gallops, or rubs. RESPIRATORY: Clear to auscultation. Breath sounds equal bilaterally. No wheezes , rales, or rhonchi. GASTROINTESTINAL: Abdomen soft, non-tender, nondistended. No hepato-splenomegaly , or palpable masses. No guarding. MUSCULOSKELETAL: Extremities without clubbing, cyanosis, or edema. No joint tenderness, effusion, or edema noted. No calf tenderness. Negative Homans sign bilaterally. NEUROLOGICAL: Awake and alert. Cranial nerves II through XII intact. Motor and sensory grossly within normal limits. Five out of 5 muscle strength in all muscle groups. Normal speech. Alert oriented A/P Assessment and Plan (1) Hypertensive encephalopathy ICD Codes: I67.4 - Hypertensive encephalopathy Status: Acute (2) Hyponatremia ICD Codes: E87.1 - Hypo-osmolality and hyponatremia Status: Acute (3) Acute kidney injury ICD Codes: N17.9 - Acute kidney failure, unspecified Status: Acute (4) possible seizure Status: Acute (5) Alcohol use ICD Codes: Z78.9 - Other specified health status Status: Acute (6) Hypothyroid ICD Codes: E03.9 - Hypothyroidism, unspecified Status: Chronic Plan 61-year-old female admitted after she was found unresponsive, drooling, possible seizure. Possible seizure, was found hyponatremic, endorses daily alcohol use. -Seizure precautions -EEG no epileptiform changes -Appreciate neurology consultation -Continue Ativan as needed for seizures -MRI brain no acute changes Daily alcohol use -Patient has been instructed to abstain from alcohol use or to at least limited amount -We will add Librium 10 mg by mouth 3 times a day as needed for withdrawal symptoms -We will add folate acid 1 mg by mouth daily and thiamine 100 mg by mouth daily -Patient counseled about alcohol abuse Hyponatremia -Continue with IV fluids -Cortisol level has been completed, results are noted Acute kidney injury -Avoid nephrotoxic agents -Continue IV fluids -Monitor BUN/creatinine, improving BUN Hypertensive urgency, blood pressure has stabilized. -Blood pressure is improving, continue with Norvasc 5 mg by mouth daily -Continue with Vasotec 2.5 mg IV push every 6 when necessary for elevated blood pressure systolic greater than 180. Monitor blood pressure Hypothyroid -Continue with home meds SCDs for DVT prophylaxis Pepcid 20 mg by mouth twice a day for GI prophylaxis Home medications reviewed, initiated as indicated Plan of care has been discussed with the patient Further management of the patient will be dependent on the hospital course Jorge Clifford MD Dec 22, 2016 17:43
--- NOTE | 2016-12-22 22:45 | HHI.PR ---
Review/Management Diagnosis Isolated seizure--? related to hyponatremia, ETOH Plan In view of normal MRI brain and EEG, I would not recommend anticonvulsant therapy I advised her not to drive for 6 months of sz free and to avoid height, machinery , swimming and to abstain from all ETOH Ok from neurology standpoint to discharge tomorrow if stable Diagnosis/Plan: Subjective Subjective Comments No acute events reported No headache No seizures Active Medications Current Medications Medications (Trade) Dose Ordered Sig/Lisa Route Start Time Stop Time Status Last Admin (Synthroid) 75 mcg DAILY@0600 PO 12/21/16 06:00 12/22/16 06:17 (Norvasc) 10 mg DAILY PO 12/21/16 09:00 12/22/16 08:35 (Vasotec Inj) 2.5 mg Q6H PRN IV PUSH 12/20/16 20:45 12/22/16 18:09 (Aspirin) 325 mg DAILY PO 12/21/16 09:00 12/22/16 08:39 Sodium Chloride 1,000 ml @ 84 mls/hr [id number] IV 12/20/16 21:00 12/22/16 13:26 (Tylenol) 650 mg QID PRN PO 12/21/16 00:15 12/21/16 00:50 (Ativan Inj) 1 mg Q4H PRN IV PUSH 12/21/16 10:15 (Folate) 1 mg DAILY PO 12/21/16 11:15 12/22/16 08:36 (Vitamin B1) 100 mg DAILY PO 12/21/16 11:15 12/22/16 08:36 (Pepcid) 10 mg BID PO 12/21/16 21:00 12/22/16 21:17 (Librium) 25 mg TID PRN PO 12/21/16 13:00 (Vitamin B12 Inj) 1,000 mcg Q30D IM 12/22/16 09:00 12/22/16 12:40 Allergies Allergies Coded Allergies codeine (Unverified Allergy, Severe, 12/20/16) diatrizoate meglumine (Unverified Allergy, Severe, 12/20/16) gadobenic acid (Unverified Allergy, Severe, 12/20/16) gadodiamide (Unverified Allergy, Severe, 12/20/16) gadoteridol (Unverified Allergy, Severe, 12/20/16) iodixanol (Unverified Allergy, Severe, 12/20/16) iohexol (Unverified Allergy, Severe, 12/20/16) Exam I&O / VS 12/22/16 12/22/16 12/23/16 14:59 22:59 06:59 Intake Total 584 ml 960 ml Output Total 1100 ml Balance 584 ml -140 ml Intake Oral 960 ml IV Total 584 ml Output Urine Total 1100 ml # Voids 4 # Bowel Movements 0 Vital Signs Date Time Temp Pulse Resp B/P (MAP) Pulse Ox O2 Delivery O2 Flow Rate FiO2 12/22/16 21:01 97.6 91 20 169/74 (105) 97 12/22/16 17:39 98.2 86 17 187/74 (111) 100 12/22/16 15:30 98.6 91 18 161/71 (101) 100 12/22/16 15:01 80 12/22/16 14:00 74 12/22/16 13:02 82 12/22/16 12:00 80 12/22/16 11:45 98.1 87 18 154/58 (90) 100 12/22/16 11:01 82 12/22/16 10:00 84 12/22/16 09:00 82 12/22/16 08:00 86 12/22/16 07:58 88 12/22/16 07:46 98.4 80 17 163/78 (106) 12/22/16 07:01 80 12/22/16 06:00 74 12/22/16 05:00 85 12/22/16 04:00 78 12/22/16 03:00 98.4 78 16 171/77 (108) 100 12/22/16 03:00 76 12/22/16 02:00 73 12/22/16 01:00 72 12/22/16 00:00 72 12/21/16 23:00 97.5 78 16 169/74 (105) 97 12/21/16 23:00 74 Exam Comments Alert speech normal CN intact MOTOR --no focal weakness Objective Radiology Results MRI brain--normal Micro and Labs Laboratory Tests Test 12/22/16 07:30 White Blood Count 5.3 Red Blood Count 3.48 Hemoglobin 11.5 Hematocrit 33.6 Mean Corpuscular Volume 96.5 Mean Corpuscular Hemoglobin 33.0 Mean Corpuscular Hemoglobin Concent 34.2 Red Cell Distribution Width 13.4 Platelet Count 451 Mean Platelet Volume 7.1 Blood Urea Nitrogen 16 Creatinine 1.46 Random Glucose 85 Calcium Level 9.2 Sodium Level 132 Potassium Level 4.1 Chloride Level 102 Carbon Dioxide Level 21.2 Anion Gap 9 Estimat Glomerular Filtration Rate 36 Diagnostic Tests EEG----mild slowing L>R, no epileptiform discharges Braulio Mari PhD Dec 22, 2016 22:45
[2016-12-23 00:12] VITALS: BP 144/66; PULSE 80; RESP 20; TEMP 97.4; O2SAT 97
[2016-12-23] MEDS: SODIUM CHLOR 0.45% 1000 ML INJ 1,000 ML IV SCH (00:58)
[2016-12-23 05:22] VITALS: BP 167/72; PULSE 82; RESP 18; TEMP 97.2; O2SAT 94
[2016-12-23] MEDS: LEVOTHYROXINE SODIUM 75 MCG TAB PO SCH (05:34)
[2016-12-23 08:00] VITALS: BP 157/70; PULSE 76; RESP 16; TEMP 98.1; O2SAT 100
[2016-12-23] MEDS: FOLIC ACID 1 MG TAB PO SCH (08:18)
[2016-12-23] MEDS: FAMOTIDINE 20 MG TAB PO SCH (08:18)
[2016-12-23] MEDS: ASPIRIN 325 MG TAB PO SCH (08:19)
[2016-12-23] MEDS: THIAMINE HCL 100 MG TAB PO SCH (08:19)
[2016-12-23 10:28] LABS: HEMATOCRIT 35.4 % (35.0-46.0); MEAN CELL VOLUME 96.9 FL (80.0-100.0); MEAN CORPUSCULAR HEMOGLOBIN 32.7 PG (27.0-34.0); MEAN CORPUSCULAR HGB CONC 33.8 % (32.0-36.0); PLATELET COUNT 490 TH/MM3 (150-450); RED BLOOD COUNT 3.65 MIL/MM3 (4.00-5.30); RED CELL DISTRIBUTION WIDTH 13.1 % (11.6-17.2); REVIEW FLAG FINAL
[2016-12-23 11:13] LABS: BICARBONATE 18.6 MEQ/L (21.0-32.0); POTASSIUM 4.8 MEQ/L (3.5-5.1)
[2016-12-23 12:00] VITALS: BP 154/67; PULSE 85; RESP 18; TEMP 98; O2SAT 100
--- NOTE | 2016-12-23 16:44 | HHI.PR ---
Subjective Remarks Patient is feeling better No seizures On medical dizziness No chest shortness of breath No nausea vomiting or abdominal pain No diarrhea or constipation No genitourinary symptoms Review of system for 10 point system otherwise unremarkable Objective Objective Results - Vital Signs Date Time Temp Pulse Resp B/P (MAP) Pulse Ox O2 Delivery O2 Flow Rate FiO2 12/23/16 12:00 98.0 85 18 154/67 (96) 100 12/23/16 08:00 98.1 76 16 157/70 (99) 100 12/23/16 05:22 97.2 82 18 167/72 (103) 94 12/23/16 00:12 97.4 80 20 144/66 (92) 97 12/22/16 22:53 73 12/22/16 21:01 97.6 91 20 169/74 (105) 97 12/22/16 17:39 98.2 86 17 187/74 (111) 100 I/O 12/22/16 12/22/16 12/22/16 12/23/16 12/23/16 12/23/16 06:59 14:59 22:59 06:59 14:59 22:59 Intake Total 1293 ml 584 ml 960 ml 1326 ml Output Total 1100 ml 1100 ml 1 ml Balance 193 ml 584 ml -140 ml 1325 ml Intake Oral 360 ml 960 ml 360 ml IV Total 933 ml 584 ml 966 ml Output Urine Total 1100 ml 1100 ml 1 ml # Voids 4 1 # Bowel Movements 0 0 Result Diagram: 12/23/16 0935 12/23/16 0935 Imaging Last Impressions Head CT 12/20/161721 Signed Impressions: Service Date/Time: Tuesday, December 20, 2016 17:24 - CONCLUSION: No acute disease. John Stallings MD Chest X-Ray 12/20/161721 Signed Impressions: Service Date/Time: Tuesday, December 20, 2016 17:37 - CONCLUSION: No acute disease. John Stallings MD Other Results Laboratory Tests Test 12/23/16 09:35 White Blood Count 6.0 Red Blood Count 3.65 Hemoglobin 12.0 Hematocrit 35.4 Mean Corpuscular Volume 96.9 Mean Corpuscular Hemoglobin 32.7 Mean Corpuscular Hemoglobin Concent 33.8 Red Cell Distribution Width 13.1 Platelet Count 490 Mean Platelet Volume 7.4 Blood Urea Nitrogen 13 Creatinine 1.25 Random Glucose 77 Calcium Level 9.4 Sodium Level 128 Potassium Level 4.8 Chloride Level 100 Carbon Dioxide Level 18.6 Anion Gap 9 Estimat Glomerular Filtration Rate 43 Physical Exam Physical Exam GENERAL: This is a well-nourished, well-developed patient, in no apparent distress. SKIN: No rashes, ecchymoses or lesions. Cool and dry. HEAD: Atraumatic. Normocephalic. No temporal or scalp tenderness. EYES: Pupils equal round and reactive. Extraocular motions intact. No scleral icterus. No injection or drainage. ENT: Airway patent. NECK: Trachea midline. No JVD or lymphadenopathy. Supple, nontender, no meningeal signs. CARDIOVASCULAR: Regular rate and rhythm without murmurs, gallops, or rubs. RESPIRATORY: Clear to auscultation. Breath sounds equal bilaterally. No wheezes , rales, or rhonchi. GASTROINTESTINAL: Abdomen soft, non-tender, nondistended. No hepato-splenomegaly , or palpable masses. No guarding. MUSCULOSKELETAL: Extremities without clubbing, cyanosis, or edema. No joint tenderness, effusion, or edema noted. No calf tenderness. Negative Homans sign bilaterally. NEUROLOGICAL: Awake and alert. Cranial nerves II through XII intact. Motor and sensory grossly within normal limits. Five out of 5 muscle strength in all muscle groups. Normal speech. Alert oriented A/P Assessment and Plan (1) Hypertensive encephalopathy ICD Codes: I67.4 - Hypertensive encephalopathy Status: Acute (2) Hyponatremia ICD Codes: E87.1 - Hypo-osmolality and hyponatremia Status: Acute (3) Acute kidney injury ICD Codes: N17.9 - Acute kidney failure, unspecified Status: Acute (4) possible seizure Status: Acute (5) Alcohol use ICD Codes: Z78.9 - Other specified health status Status: Acute (6) Hypothyroid ICD Codes: E03.9 - Hypothyroidism, unspecified Status: Chronic Plan 61-year-old female admitted after she was found unresponsive, drooling, possible seizure. Possible seizure, was found hyponatremic, endorses daily alcohol use. -Seizure precautions -EEG no epileptiform changes -Appreciate neurology consultation -Ativan as needed for seizures -MRI brain no acute changes Daily alcohol use -Patient has been instructed to abstain from alcohol use or to at least limited amount -On Librium as needed for withdrawal symptoms -We will add folate acid 1 mg by mouth daily and thiamine 100 mg by mouth daily -Patient counseled about alcohol abuse Hyponatremia -Continue with IV fluids -Cortisol level has been completed, results are noted Acute kidney injury improving better -Avoid nephrotoxic agents -Continue IV fluids -Monitor BUN/creatinine, improving BUN Hypertensive urgency, blood pressure has stabilized. -Blood pressure is improving, continue with Norvasc 5 mg by mouth daily -Continue with Vasotec 2.5 mg IV push every 6 when necessary for elevated blood pressure systolic greater than 180. Monitor blood pressure - Add low-dose beta marissa Hypothyroid -Continue with home meds SCDs for DVT prophylaxis Pepcid 20 mg by mouth twice a day for GI prophylaxis Home medications reviewed, initiated as indicated Plan of care has been discussed with the patient and at bedside Appreciate neurology input okay to discharge Plan to discharge her home to follow primary care doctor and neurology as outpatient. Advise not to drive for 6 months and not to operate any heavy machinery sharp object or climb ladders she understood very well. Jorge Clifford MD Dec 23, 2016 16:44
[2016-12-23] MEDS ORDERED: CHLO10CA5 PO (16:54)
[2016-12-23] MEDS ORDERED: VITA10002 PO (16:54)
[2016-12-23] MEDS ORDERED: GNP100TA3 PO (16:54)
[2016-12-23] MEDS ORDERED: AMLO10 PO (16:54)
[2016-12-23] MEDS ORDERED: FOLI1TAB6 PO (16:54)
[2016-12-23] MEDS ORDERED: CYAN1000P IM (16:54)
[2016-12-23] MEDS ORDERED: METO-309 PO (16:58)
== END 2016-12-23 17:52 | disposition home or self-care (01) | DRG 101 ==
LOC: NEPC 17:18 → NEDA 19:18 → HCIN 22:38 → N05B 12-22 16:57
PROVIDERS: ADMIT Specialist; ATTEND Specialist
DX: R56.9 Unspecified convulsions (principal); I67.4 Hypertensive encephalopathy; N17.9 Acute kidney failure, unspecified; E87.1 Hypo-osmolality and hyponatremia; F17.210 Nicotine dependence, cigarettes, uncomplicated; E03.9 Hypothyroidism, unspecified; I10 Essential (primary) hypertension; I16.0 Hypertensive urgency; F10.10 Alcohol abuse, uncomplicated; R73.9 Hyperglycemia, unspecified; Z79.82 Long term (current) use of aspirin
CPT/HCPCS: 70450; 70551; 71010; 80048; 80053; 80061; 80307; 82533; 82550; 82607; 83690; 83880; 83930; 84484; 85025; 85027; 93005; 95819; 96374; J0360; J3420